=== PATIENT | male | born 1950 | race Caucasian/White ===

== ENCOUNTER 2021-05-12 02:29 | Emergency (ER) | payer MEDICARE ==
[~2021-05-12] VITALS: Ht 193 cm; Wt 106.6 kg
[2021-05-12 02:53] LABS: BASOPHILS # (AUTO) 0.1 10^3/uL (0.0-0.1); BASOPHILS % (AUTO) 1 % (0-10); EOSINOPHILS # (AUTO) 0.3 10^3/uL (0.0-0.3); EOSINOPHILS % (AUTO) 4 % (0-10); HEMATOCRIT 47 % (40-54); HEMOGLOBIN 15.4 g/dL (13.3-17.7); LYMPHOCYTES % (AUTO) 26 % (12-44); MEAN CORPUSCULAR HEMOGLOBIN 32 pg (25-34); MEAN CORPUSCULAR HGB CONC 33 g/dL (32-36); MEAN CORPUSCULAR VOLUME 96 fL (80-99); MEAN PLATELET VOLUME 10.1 fL (9.0-12.2); MONOCYTES # (AUTO) 0.9 10^3/uL (0.0-1.0); MONOCYTES % (AUTO) 11 % (0-12); NEUTROPHILS # (AUTO) 4.6 10^3/uL (1.8-7.8); NEUTROPHILS % (AUTO) 58 % (42-75); PLATELET COUNT 238 10^3/uL (130-400); WHITE BLOOD COUNT 7.9 10^3/uL (4.3-11.0)
--- NOTE | 2021-05-12 02:55 | ED Cardiac General ---
History of Present Illness General Chief Complaint: Cardiac/General Problems Stated Complaint: PALPITATIONS Nursing Triage Note: Pt ambulates to ED 5 with c/o waking up with heart palpitations and feeling like his "heart is racing", denies chest pain/pressure at this time. Source: patient History of Present Illness Date Seen by Provider: May 12, 2021 Time Seen by Provider: 02:39 Initial Comments PT ARRIVES VIA POV STATES HE WOKE UP AROUND [id number] WITH HIS HEART RACING CHECKED HIS PULSE ON "APPLE WATCH" AND WAS 80-120 NO CHEST PAIN NO SWEATS NO SHORTNESS OF BREATH NO NAUSEA/VOMITING NO DIZZINESS OR SYNCOPE NO HISTORY OF SIMILAR PT HAS HTN, BUT DENIES ANY RECENT MISSED DOSES OR CHANGES IN MEDICATION OR DOSE STATES HE HAS HAD PAIN AND SWELLING IN HIS LEFT KNEE FOR THE LAST 1 1/2 WEEKS, AND ENTIRE LEFT LOWER LEG IS ALSO SWOLLEN, STATES IT IS BECAUSE OF KNEE BRACE HE HAS BEEN WEARING NO CALF PAIN NO INJURY TO KNEE PT IS HERE VISITING FROM [facility]. HAS BEEN AT A "[employer]" [employer] FOR THE LAST 3 DAYS HAS BEEN OUT IN THE HEAT ALL DAY FOR THE LAST 3 DAYS, STATES HE HAS BEEN DRINKING A TON OF WATER, BUT THINKS HE HAS NOT BEEN DRINKING ENOUGH BECAUSE OF THE HEAT. PCP IN [place] Allergies and Home Medications Allergies Coded Allergies: No Known Drug Allergies (Unverified , 05/12/21) Patient Home Medication List Home Medication List Reviewed: Yes Review of Systems Review of Systems Constitutional: no symptoms reported Respiratory: No Symptoms Reported Cardiovascular: See HPI; Denies Chest Pain, Denies Edema; Irregular Heart Rate; Denies Lightheadedness; Palpitations; Denies Syncope Gastrointestinal: No Symptoms Reported Genitourinary: No Symptoms Reported Musculoskeletal: see HPI Skin: no symptoms reported Psychiatric/Neurological: No Symptoms Reported Endocrine: No Symptoms Reported Hematologic/Lymphatic: No Symptoms Reported Past Skqnmhj-Zlbmbt-Pctump Hx Past Med/Social Hx: Reviewed and Corrections made Patient Social History Alcohol Use: Regular Use ("2 DRINKS OF SCOTCH" EVERY DAY) Alcohol Beverage of Choice: Scotch Drug of Choice: DENIES Smoking Status: Never a Smoker Recent Infectious Disease Expo: No Past Medical History Surgeries: Yes (L KNEE SURGERY;CALCIFIED HEMATOMA R FOREARM REMOVED;BACK SURGERY;CATH) Cardiac, Orthopedic Respiratory: No Cardiac: Yes (CARDIAC CATH X2 --NORMAL PER PT--> 20 YEARS AGO. ) Hypertension Neurological: No Genitourinary: No Gastrointestinal: No Musculoskeletal: Yes (BACK SURGERY; RIGHT KNEE SURGERY) Chronic Back Pain Endocrine: No HEENT: No Cancer: No Psychosocial: No Integumentary: No Blood Disorders: No Physical Exam Vital Signs Vital Signs - First Documented 05/12/21 05/12/21 02:39 02:40 Temp 36.4 Pulse 75 Resp 16 B/P (MAP) 175/97 (123) Pulse Ox 98 O2 Delivery Room Air FiO2 98 Capillary Refill : Less Than 3 Seconds Height, Weight, BMI Height: '" Weight: lbs. oz. kg; 28.00 BMI Method: General Appearance: No Apparent Distress, WD/WN Neck: Full Range of Motion, Normal Inspection, Non Tender, Supple Respiratory: Normal Breath Sounds, No Accessory Muscle Use, No Respiratory D istress Cardiovascular: Regular Rate, Rhythm, No JVD, No Murmur, Normal Peripheral Pulses Gastrointestinal: Non Tender, Soft Extremity: Normal Capillary Refill, Normal Range of Motion, Non Tender; No Calf Tenderness; Pedal Edema (LEFT KNEE AND LOWER LEG, ANKLE AND FOOT WITH 1+ EDEMA. 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 Skin: Normal Color, Warm/Dry Progress/Results/Core Measures Results/Orders Lab Results Laboratory Tests Test 05/12/21 02:47 Range/Units White Blood Count 7.9 4.3-11.0 10^3/uL Red Blood Count 4.88 4.30-5.52 10^6/uL Hemoglobin 15.4 13.3-17.7 g/dL Hematocrit 47 40-54 % Mean Corpuscular Volume 96 80-99 fL Mean Corpuscular Hemoglobin 32 25-34 pg Mean Corpuscular Hemoglobin Concent 33 32-36 g/dL Red Cell Distribution Width 12.7 10.0-14.5 % Platelet Count 238 130-400 10^3/uL Mean Platelet Volume 10.1 9.0-12.2 fL Immature Granulocyte % (Auto) 0 % Neutrophils (%) (Auto) 58 42-75 % Lymphocytes (%) (Auto) 26 12-44 % Monocytes (%) (Auto) 11 0-12 % Eosinophils (%) (Auto) 4 0-10 % Basophils (%) (Auto) 1 0-10 % Neutrophils # (Auto) 4.6 1.8-7.8 10^3/uL Lymphocytes # (Auto) 2.0 1.0-4.0 10^3/uL Monocytes # (Auto) 0.9 0.0-1.0 10^3/uL Eosinophils # (Auto) 0.3 0.0-0.3 10^3/uL Basophils # (Auto) 0.1 0.0-0.1 10^3/uL Immature Granulocyte # (Auto) 0.0 0.0-0.1 10^3/uL D-Dimer 0.77 H 0.00-0.49 UG/ML Sodium Level 143 135-145 MMOL/L Potassium Level 3.7 3.6-5.0 MMOL/L Chloride Level 105 98-107 MMOL/L Carbon Dioxide Level 24 21-32 MMOL/L Anion Gap 14 5-14 MMOL/L Blood Urea Nitrogen 16 7-18 MG/DL Creatinine 0.93 0.60-1.30 MG/DL Estimat Glomerular Filtration Rate > 60 BUN/Creatinine Ratio 17 Glucose Level 108 H 70-105 MG/DL Calcium Level 9.9 8.5-10.1 MG/DL Corrected Calcium 8.5-10.1 MG/DL Magnesium Level 2.1 1.6-2.4 MG/DL Total Bilirubin 0.4 0.1-1.0 MG/DL Aspartate Amino Transf (AST/SGOT) 36 H 5-34 U/L Alanine Aminotransferase (ALT/SGPT) 39 0-55 U/L Alkaline Phosphatase 45 40-136 U/L Total Creatine Kinase 254 H 30-200 U/L Creatine Kinase MB 3.1 <6.6 NG/ML Myoglobin 38.9 10.0-92.0 NG/ML Troponin I < 0.028 <0.028 NG/ML B-Type Natriuretic Peptide 62.9 <100.0 PG/ML Total Protein 7.6 6.4-8.2 GM/DL Albumin 4.6 H 3.2-4.5 GM/DL TSH [place] Testing 3.11 0.35-4.94 UIU/ML My Orders Orders - [place] WU DO Ed Iv/Invasive Line Start (05/12/21 02:39) Ekg Tracing (05/12/21 02:39) O2 (05/12/21 02:39) Monitor-Rhythm Ecg Trace Only (05/12/21 02:39) BNP (05/12/21 02:39) Cbc With Automated Diff (05/12/21 02:39) Comprehensive Metabolic Panel (05/12/21 02:39) Creatine Kinase (05/12/21 02:39) Creatine Kinase Mb (05/12/21 02:39) Magnesium (05/12/21 02:39) Thyroid Analyzer (05/12/21 02:39) Myoglobin Serum (05/12/21 02:39) Troponin I (05/12/21 02:39) Chest 1 View, Ap/Pa Only (05/12/21 02:39) Fibrin Degradation Products (05/12/21 02:56) Ct Angio Chest W (05/12/21 03:43) Vital Signs/I&O 05/12/21 05/12/21 02:39 02:40 Temp 36.4 Pulse 75 Resp 16 B/P (MAP) 175/97 (123) Pulse Ox 98 98 O2 Delivery Room Air Room Air FiO2 98 Blood Pressure Mean: 123 Progress Progress Note : Progress Note NO ARRHYTHMIAS OR ANY COMPLAINTS DURING ENTIRE ER STAY SLEPT/ RESTED QUIETLY FOR MOST OF ER STAY BP COMING DOWN WITH OUT TREATMENT OFFERED PT ADMIT, AND HE DECLINES ADVISED HIM TO RETURN TO ER IF SYMPTOMS RETURN PT HAS AN APPOINTMENT ON FRIDAY MORNING AT 0800 WITH ORTHOPEDIC SURGEON REGARDING HIS LEFT KNEE ADVISED HIM TO FOLLOW UP WITH HIS COMPUTER SYSTEMS INTEGRATOR OR PCP THE BEGINNING OF THE WEEK FOR FURTHER EVALUATION OF PALPITATIONS NO ULTRASOUND AVAILABLE HERE AT THIS TIME OR ALL WEEKEND--ADVISED PT OF POSSIBLE NEED FOR ULTRASOUND OF LEG IF SWELLING PERSISTS. Initial ECG Impression Date: May 12, 2021 Initial ECG Impression Time: 02:42 Initial ECG Rate: 70 Initial ECG Rhythm: Normal Sinus Initial ECG Comparisson: No Previous ECG Available Diagnostic Imaging Comments CXR--NO ACUTE PROCESS, PENDING RADIOLOGIST REVIEW CT CHEST ANGIOGRAM--NO P.E. OR ACUTE PROCESS, PER [facility] VIA FAX AT [phone] Reviewed: Reviewed by Me Departure Impression Primary Impression: Palpitations Additional Impression: Left leg swelling Disposition: 01 HOME, SELF-CARE Condition: Improved Departure-Patient Inst. Decision time for Depature: 05:05 Referrals: NO,LOCAL PHYSICIAN (PCP/Family) Primary Care Physician Patient Instructions: Dependent Edema (DC), Palpitations Add. Discharge Instructions: HOME, REST KEEP WELL HYDRATED LIMIT YOUR TIME IN THE HEAT, AND LIMIT YOUR ACTIVITIES FOR THE NEXT FEW DAYS CONTINUE YOUR REGULAR MEDICATIONS PRESCRIBED INCREASE YOUR ASPIRIN TO 324 MG DAILY, UNTIL YOU ARE RECHECKED BY YOUR DR RETURN TO ER IF YOUR SYMPTOMS RETURN KEEP YOUR APPOINTMENT WITH YOUR ORTHOPEDIC SURGEON ON FRIDAY MORNING FOLLOW UP WITH YOUR COMPUTER SYSTEMS INTEGRATOR OR FAMILY DR THE BEGINNING OF THE WEEK-CALL ON FRIDAY TO MAKE AN APPOINTMENT All discharge instructions reviewed with patient and/or family. Voiced understanding. NJ WU DO May 12, 2021 02:55
[2021-05-12 03:07] LABS: ALBUMIN 4.6 GM/DL (3.2-4.5); CHLORIDE 105 MMOL/L (98-107); POTASSIUM 3.7 MMOL/L (3.6-5.0); SODIUM 143 MMOL/L (135-145)
[2021-05-12 03:08] LABS: CALCIUM 9.9 MG/DL (8.5-10.1)
[2021-05-12 03:10] LABS: GLUCOSE 108 MG/DL (70-105); TOTAL PROTEIN 7.6 GM/DL (6.4-8.2)
[2021-05-12 03:11] LABS: BILIRUBIN,TOTAL 0.4 MG/DL (0.1-1.0); CARBON DIOXIDE 24 MMOL/L (21-32)
[2021-05-12 03:13] LABS: ALKALINE PHOSPHATASE 45 U/L (40-136); CREATININE SERUM 0.93 MG/DL (0.60-1.30); GFR ESTIMATED > 60
[2021-05-12 03:14] LABS: BUN/CREATININE RATIO 17
[2021-05-12 03:16] LABS: ALANINE AMINOTRANSFERASE 39 U/L (0-55); MAGNESIUM 2.1 MG/DL (1.6-2.4)
[2021-05-12 03:17] LABS: CREATINE KINASE 254 U/L (30-200)
[2021-05-12 03:24] LABS: CREATINE KINASE MB 3.1 NG/ML (<6.6)
[2021-05-12 03:36] LABS: TSH (THYROID ANALYZER) 3.11 UIU/ML (0.35-4.94)
[2021-05-12 05:19] VITALS: BP 149/94
--- NOTE | 2021-05-12 07:27 | Diagnostic Imaging Report ---
INDICATION: PALPITATIONS. TECHNIQUE: Single view chest 4:12 AM. CORRELATION STUDY: None FINDINGS: The heart size, mediastinal configuration and pulmonary vascularity are within normal limits. The lungs are clear with no consolidating infiltrate. There is no significant effusion or pneumothorax. IMPRESSION: 1. Negative portable chest. Dictated by: Dictated on workstation # [id number]
--- NOTE | 2021-05-12 08:12 | Diagnostic Imaging Report ---
PROCEDURE: CT angiography of the chest with contrast. TECHNIQUE: Multiple contiguous axial images were obtained through the chest after uneventful bolus administration of intravenous contrast. 3D reconstructed CTA MIP acquisitions were also performed. Auto Exposure Controls were utilized during the CT exam to meet ALARA standards for radiation dose reduction. INDICATION: 71-year-old male, palpitations. CORRELATION: None FINDINGS: Heart size is a upper limits normal. There is no disproportionate right heart strain. No pericardial effusion. Scattered mild coronary artery calcification. Thoracic aortic contour demonstrates slight prominent appearance about the ascending aorta, 5 cm. Intraluminal assessment not well assessed. Mild wall calcification. No pulmonary artery filling defect to suggest pulmonary embolism. The lung luong are clear of infiltrate. No significant pleural effusion. The visualized portions of the upper abdomen are unremarkable. Advanced degenerative changes with scattered bridging osteophytes. IMPRESSION: 1. No CTA evidence for pulmonary embolism or otherwise acute abnormality of the chest. Dictated by: Dictated on workstation # [id number]
== END 2021-05-12 05:19 | disposition home or self-care (01) ==
LOC: ER 02:33
DX: R00.2 Palpitations (principal); M79.89 Other specified soft tissue disorders; I10 Essential (primary) hypertension
CPT/HCPCS: 36415; 71045; 71275; 80053; 82550; 82553; 83735; 83874; 83880; 84443; 84484; 85025; 85379; 93005; 93041